=== PATIENT | male | born 1960 | race Caucasian/White ===

== ENCOUNTER → 2018-10-10 | Emergency (ER) | payer MEDICAID, OTHER ==
[~2018-10-10] VITALS: Ht 167.6 cm; Wt 69.0 kg
[~2018-10-10] MED LIST: ELIM TOP
[2018-10-10 12:10] VITALS: BP 144/78; PULSE 88; RESP 16; Ht 167.6 cm; Wt 69.0 kg
--- NOTE | 2018-10-10 13:54 | ERD ---
ER Documentation Chief Complaint Chief Complaint rash on abdomen and arms x 3 months HPI 58-year-old male presenting with rash to abdomen and arms times 3 months. He states the rash is very itchy. He has not use any medications on the rash. Denies any fevers. Denies other medical problems. NKDA. Surgical history denies. Social history denies ROS All systems reviewed and are negative except as per history of present illness. Medications Home Meds Active Scripts Permethrin* (Elimite*) 5% Cr, 1 APPLIC TOP ONCE, #1 TUB Prov:JOSE DE JESUS RODRIGEZ PA-C 10/10/18 Allergies Allergies: Coded Allergies: No Known Allergy (Unverified , 01/11/16) PMhx/Soc Hx Alcohol Use: Yes Hx Substance Use: No Hx Tobacco Use: No FmHx Family History: No diabetes, No coronary disease, No other Physical Exam Vitals Vital Signs Date Temp Pulse Resp B/P (MAP) Pulse Ox O2 O2 Flow FiO2 Time Delivery Rate 10/10/18 97.4 88 16 144/78 97 12:10 (100) Physical Exam GENERAL: The patient is well-appearing, well-nourished, in no acute distress HEENT: Atraumatic. Conjunctivae are pink. Pupils equal, round, and reactive to light. There is no scleral icterus. Tympanic membranes clear bilaterally. Oropharynx clear. No nystagmus or photophobia. NECK: C-spine is soft and supple. There is no meningismus. There is no cervical lymphadenopathy. CHEST: Clear to auscultation bilaterally. There are no rales, wheezes or rhonchi. HEART: Regular rate and rhythm. No murmurs, clicks, rubs or gallops. SKIN: Excoriated rash noted to the chest and arms. Small de-cathy noted with linear burrowing. No vesicles or pustules. Procedures/MDM MDM: 58-year-old male presenting with rash. Rash is concerning for scabies. I will treat patient. Parasitic infection. I have low suspicion for bacterial infection. Patient is discharged with stricter precautions. All questions answered at discharge Departure Diagnosis: Primary Impression: Scabies Condition: Stable Patient Instructions: Scabies Referrals: COMMUNITY CLINICS YOU HAVE RECEIVED A MEDICAL SCREENING EXAM AND THE RESULTS INDICATE THAT YOU DO NOT HAVE A CONDITION THAT REQUIRES URGENT TREATMENT IN THE EMERGENCY DEPARTMENT. FURTHER EVALUATION AND TREATMENT OF YOUR CONDITION CAN WAIT UNTIL YOU ARE SEEN IN YOUR DOCTORS OFFICE WITHIN THE NEXT 1-2 DAYS. IT IS YOUR RESPONSIBILITY TO MAKE AN APPOINTMENT FOR FOLOW-UP CARE. IF YOU HAVE A PRIMARY DOCTOR --you should call your primary doctor and schedule an appointment IF YOU DO NOT HAVE A PRIMARY DOCTOR YOU CAN CALL OUR PHYSICIAN REFERRAL HOTLINE AT IF YOU CAN NOT AFFORD TO SEE A PHYSICIAN YOU CAN CHOSE FROM THE FOLLOWING [facility] [address] [facility] [address] [facility] [address] [facility] [facility] [address] [facility] [address] [facility] [address] [facility] [facility]. [address] Additional Instructions: FOLLOW UP WITH YOUR PRIMARY CARE PHYSICIAN TOMORROW.Return to this facility if you are not improving as expected. JOSE DE JESUS RODRIGEZ PA-C Oct 10, 2018 13:54
== END | disposition home or self-care (01) ==
LOC: FTE 11:57
DX: B86 Scabies (principal)
CPT/HCPCS: 99282

== ENCOUNTER 2018-11-27 21:02 | Emergency (ER) | payer MEDICAID ==
[~2018-11-27] VITALS: Ht 177.8 cm; Wt 75.0 kg
[2018-11-27 21:11] VITALS: BP 145/89; PULSE 148; RESP 20; Ht 177.8 cm; Wt 75.0 kg
--- NOTE | 2018-11-27 22:02 | ERD ---
ER Documentation Chief Complaint Chief Complaint generalized itchiness/rash x 2 months HPI 58-year-old male, presents to the emergency department, complaining of generalized pruritic lesions for approximately 2 months. The patient denies fever, no chills, no chest pain, no shortness of breath, no abdominal pain. The patient reports that the constant pruritus is causing a lot of anxiety ROS All systems reviewed and are negative except as per history of present illness. Medications Home Meds Active Scripts Permethrin* (Elimite*) 5% Cr, 1 APPLIC TOP ONCE, #2 TUB Prov:MARY WARD MD 11/27/18 Hydroxyzine Hcl* (Hydroxyzine Hcl*) 25 Mg Tablet, 25 MG PO Q8H PRN for ITCHING, #30 TAB Prov:MARY WARD MD 11/27/18 Lorazepam* (Ativan*) 0.5 Mg Tablet, 0.5 MG PO QHS PRN for ANXIETY, #10 TAB Prov:MARY WARD MD 11/27/18 Permethrin* (Elimite*) 5% Cr, 1 APPLIC TOP ONCE, #1 TUB Prov:JOSE DE JESUS RODRIGEZ PA-C 10/10/18 Allergies Allergies: Coded Allergies: No Known Allergy (Unverified , 01/11/16) PMhx/Soc Medical and Surgical Hx: pt denies Medical Hx, pt denies Surgical Hx Hx Alcohol Use: Yes Hx Substance Use: No Hx Tobacco Use: No Smoking Status: Never smoker FmHx Family History: No diabetes, No coronary disease Physical Exam Vitals Vital Signs Date Temp Pulse Resp B/P (MAP) Pulse Ox O2 O2 Flow FiO2 Time Delivery Rate 11/27/18 98.0 22:53 11/27/18 100.4 148 20 145/89 97 21:11 (107) Physical Exam Const: No acute distress Head: Atraumatic Eyes: Normal Conjunctiva ENT: Normal External Ears, Nose and Mouth. Neck: Full range of motion. No meningismus. Resp: Clear to auscultation bilaterally Cardio: Regular rate and rhythm, no murmurs Abd: Soft, non tender, non distended. Normal bowel sounds Skin: No petechiae or rashes Back: Superficial excoriations with multiple erythematous micropapules predominantly on flexor areas. Ext: No cyanosis, or edema Neur: Awake and alert Psych: Normal Mood and Affect Results 24 hrs Current Medications Medications Dose Sig/Jasson Start Time Status Last (Trade) Ordered Route PRN Stop Time Admin Dose Reason Admin Lorazepam 0.5 mg ONCE ONCE 11/27/18 DC 11/27/18 (Ativan) PO 22:30 22:13 11/27/18 22:31 Procedures/MDM Differential diagnosis include but not limited to: Scabies, tinea, cellulitis, eczema, contact dermatitis, insect bites. Physical examination and clinical presentation consistent most likely with scabies . During the ED course the patient remained stable, no new complaints. Clinical impression discussed with the patient who agrees with management. The patient is stable to be treated outpatient and will be discharged home with a Rx for permethrin and hydroxyzine, some side effects of prescribed medications (headache, rash, nausea, vomiting, diarrhea, interactions with other medications) were reviewed. The patient was instructed to follow up with the primary care provider in the next 48h. If symptoms persist, worsen or new symptoms develop, then patient should return to the ED immediately. Instructions explained and given directly by me to the patient in Khmer with acknowledgment and demonstrated understanding. Disclaimer: Inadvertent spelling and grammatical errors are likely due to EHR/dictation software use and do not reflect on the overall quality of patient care. Also, please note that the electronic time recorded on this note does not necessarily reflect the actual time of the patient encounter. Departure Diagnosis: Primary Impression: Scabies Additional Impression: Anxiety Condition: Stable Additional Instructions: Much[place] hill por [facility] para alvarado servicio. Esperamos que en alvarado visita a la indira de emergencia alvarado problema medico haya sido solucionado y que se sienta mucho mejor. Para estar seguros que alvarado mejoria sigue en proceso, le pedimos el favor de hacer pam abigail de seguimiento medico con alvarado doctor primario en los proximos 2-4 oreilly. Lleve con usted estos documentos y las medicinas recetadas. Si maulik sintomas empeoran, NO SE ESPERE, por favor regrese a indira de emergencia INMEDIATAMENTE. En zaheer que usted no tenga un mdico de atencin primaria: Llame al mdico o clnica comunitaria de referencia que aparece abajo patricia las horas de consultorio para hacer pam abigail para que le vean. CLINICAS: [facility] [phone] [facility] [phone] [facility] [phone] [facility] [phone] [facility] [facility]. [place] [id number] [phone] [facility] [phone] MARY WHITAKER MD November 27, 2018 22:02
[2018-11-27] MEDS ORDERED: HYDR-843 PO (22:07)
[2018-11-27] MEDS ORDERED: LORA-441 PO (22:07)
[2018-11-27] MEDS ORDERED: ELIM TOP (22:07)
[2018-11-27] MEDS ORDERED: LORAZEPAM 0.5 MG TAB PO ONE (22:30)
== END 2018-11-27 22:54 | disposition home or self-care (01) ==
LOC: FTE 21:02
DX: B86 Scabies (principal); F41.9 Anxiety disorder, unspecified
CPT/HCPCS: Z7502; Z7610; 99283